=== PATIENT | female | born 1990 | race Caucasian/White ===

== ENCOUNTER 2019-12-06 21:07 | Emergency (ER) | payer BC, SELFPAY ==
[2019-12-06 21:09] VITALS: BP 119/103; PULSE 106; RESP 16; O2SAT 97; BMI 25.7
--- NOTE | 2019-12-06 21:09 | PC.NURSE ---
2101: 2 boluses of NS hung at this time infusing in both IVs pt covered in warm blanket 50 mcg of fentanyl at this time
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
--- NOTE | 2019-12-06 21:10 | PC.NURSE ---
50 mcg of fentanyl given
--- NOTE | 2019-12-06 21:11 | PC.NURSE ---
2057 IV access gained by Mickey, RN 18G to RT AC and 20g to LT AC
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
[2019-12-06 21:35] LABS: Basophils # 0.1 K/mm3 (0-0.2); Basophils % 0.6 % (0.1-2.0); Eosinophils # 0.5 K/mm3 (0.0-0.4); Eosinophils % 2.5 % (0.1-12.0); Hemoglobin 16.5 g/dL (12.2-16.2); Lymphocytes # 7.9 K/mm3 (0.7-4.5); Lymphocytes % 43.8 % (10-50); Mean Corpuscular HGB Conc 33.6 g/dL (31.8-35.4); Mean Corpuscular Hemoglobin 29.1 pg (27.0-31.2); Mean Corpuscular Volume 86.7 fl (81-99); Mean Platelet Volume 7.7 fl (7.4-10.4); Monocytes # 0.7 K/mm3 (0.1-1.0); Monocytes % 3.7 % (1.7-9.3); Neutrophils # 8.9 K/mm3 (1.8-7.8); Neutrophils % 49.4 % (37.0-80.0); Platelet Count 447 K/mm3 (142-424); Red Blood Count 5.65 M/mm3 (4.20-5.40); Red Cell Distribution Width 13.6 % (11.5-17.5)
[2019-12-06 21:36] LABS: MANUAL DIFFERENTIAL MANUAL DIFFERENTIAL (MANUAL DIFF)
[2019-12-06 21:39] LABS: Chloride 111 mmol/L (98-107); Sodium 143 mmol/L (136-145)
--- NOTE | 2019-12-06 21:39 | [facility].EDTRAUMA ---
ED Disposition Clinical Impression: Lumbar back pain, Abrasions of multiple sites Concussion Qualifiers: Encounter type: initial encounter Loss of consciousness presence/duration: without LOC Qualified Code(s): S06.0X0A - Concussion without loss of consciousness, initial encounter Acute cervical sprain Qualifiers: Encounter type: initial encounter Qualified Code(s): S13.9XXA - Sprain of joints and ligaments of unspecified parts of neck, initial encounter Left wrist sprain Qualifiers: Encounter type: initial encounter Qualified Code(s): S63.502A - Unspecified sprain of left wrist, initial encounter Disposition: Home, Self-Care Condition on Discharge: Good Instructions: DI for Abrasion Additional Instructions: call pcp in am for follo wup Prescriptions: Ketorolac Tromethamine [Toradol 10mg tablet] 10 mg PO Q6H 2 Days #10 tab Prescription Printed Referrals: Provider,Referral, MD [Primary Care Provider] - - Critical Care Critical Care Time: No Attestation: On 12/06/19, the high probability of a clinically significant, sudden or life threatening deterioration of the following system(s) required my full and direct attention, intervention and personal management. The time I documented below is in addition to time spent performing reported procedures but includes the following listed in this critical care notation. Medical Decision Making - Medical Records Medical records reviewed: Yes: I reviewed the patient's medical records. - Jagjit Inquiry Pt receiving controlled substance: No Vital Signs: 12/06/19 21:09 Pulse Rate [Left Radial] 106 H Respiratory Rate 16 Blood Pressure [Right Arm] 119/103 H Blood Pressure Mean [Right Arm] 108 Blood Pressure Source [Right Arm] Manual Cuff/ Auscultation Blood Pressure Position [Right Arm] Supine 02 Sat by Pulse Oximetry 97 Oxygen Delivery Method Room Air - Lab Data Lab results reviewed: Yes: I reviewed the patient's lab results. Lab Results 12/06/19 21:00: WBC 18.0 H, RBC 5.65 H, Hgb 16.5 H, Hct 49.0 H, MCV 86.7, MCH 29.1, MCHC 33.6, RDW 13.6, Plt Count 447 H, MPV 7.7, Neut % (Auto) 49.4, Lymph % (Auto) 43.8, Dane % (Auto) 3.7, Eos % (Auto) 2.5, Baso % (Auto) 0.6, Neut # (Auto) 8.9 H, Lymph # (Auto) 7.9 H, Dane # (Auto) 0.7, Eos # (Auto) 0.5 H, Baso # (Auto) 0.1, Total Counted 100, Neutrophils % (Manual) 46, Lymphocytes % (Manual) 52 H, Monocytes % (Manual) 1 L, Basophils % (Manual) 1.0, Platelet Estimate Normal, RBC Morphology Normal 12/06/19 21:00: Sodium 143, Potassium 3.2 L, Chloride 111 H, Carbon Dioxide 20 L, Anion Gap 15.2 H, BUN 6 L, Creatinine 0.80, Estimated Creat Clear 113, Estimated GFR 86, Est GFR ( Amer) 104, Glucose 137 H, Calcium 9.0, Total Bilirubin 0.7, AST 30, ALT 25, Alkaline Phosphatase 88, Total Protein 7.9, Albumin 4.9, Globulin 3.0, Albumin/Globulin Ratio 1.6 12/06/19 21:00: Plasma/Serum Alcohol 271 H Result diagrams: 12/06/19 21:00 12/06/19 21:00 Orders (Tests/Meds): ED MEDICATIONS Discontinued Medications Generic Name Dose Route Start Last Admin Trade Name Freq PRN Reason Stop Dose Admin Ketorolac Tromethamine 30 mg 12/06/19 22:16 12/06/19 22:16 Toradol 30mg/Ml Vial IV 12/06/19 22:17 30 mg ONCE ONE Administration ORDERS Category Date Time Status CT abdomen pelvis w con Stat Cat Scan 12/06/19 21:[address] angio chest Stat Cat Scan 12/06/19 21:[address] cervical spine wo con Stat Cat Scan 12/06/19 21:[address] head/brain wo con Stat Cat Scan 12/06/19 21:[address] lumbar spine wo con Stat Cat Scan 12/06/19 21:[address] thoracic spine wo con Stat Cat Scan 12/06/19 21:14 Taken Ankle XR - Left minimum 3 Views [XR ankle LT min 3V] Exams 12/06/19 21:19 Taken Stat XR chest AP Stat Exams 12/06/19 21:16 Taken XR pelvis 1-2V Stat Exams 12/06/19 21:14 Taken XR wrist LT min 3V Stat Exams 12/06/19 21:19 Taken Drug Screen,Urine Stat Lab 12/06/19 21:40 Ordered Urinalysi
[2019-12-06 21:40] LABS: Potassium 3.2 mmoL/L (3.5-5.1)
[2019-12-06 21:42] LABS: Alanine Aminotransferase 25 U/L (12-78); Albumin Level 4.9 g/dl (3.5-5.0); Albumin/Globulin Ratio 1.6 (1.1-1.8); Alkaline Phosphatase 88 U/L (38-126); Anion Gap 15.2 mEq/L (5-15); Aspartate Amino Transferase 30 U/L (14-36); Bilirubin,Total 0.7 mg/dl (0.2-1.3); Blood Urea Nitrogen 6 mg/dl (7-17); Carbon Dioxide 20 mmol/L (22.0-30.0); Creatinine Clearance Estimated 113 mL/min (50-200); Estimated Glomerular Filt Rate 86 ml/min (>60); GFR (African American) 104 ML/MIN (>60); Total Protein,Serum 7.9 g/dl (6.3-8.2)
[2019-12-06 21:43] LABS: Glucose 137 mg/dl (74-100)
[2019-12-06 21:55] LABS: Ethyl Alcohol 271 mg/dl (0-10)
--- NOTE | 2019-12-06 21:56 | PC.NURSE ---
report given to caryl dee rn and ainsley cotter,emt-p
--- NOTE | 2019-12-06 22:01 | PC.NURSE ---
pt left via [facility]
[2019-12-06 22:05] LABS: Lymphocytes % 52 % (10-50); Monocytes % 1 % (2-9); Neutrophils % 46 % (42-76); Total Cells Counted 100
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
[2019-12-06 22:06] LABS: Platelet Estimate Normal; RBC Morphology Normal
--- NOTE | 2019-12-06 22:26 | PC.NURSE ---
head and chest ct's egative result received at this time
[2019-12-06 23:18] VITALS: BP 120/79; PULSE 83; RESP 16; TEMP 36.7; O2SAT 97
[2019-12-29 10:10] LABS: POC Glucose,Bedside 137 (70-110)
== END 2019-12-06 23:22 | disposition home or self-care (01) ==
PROVIDERS: Emergency Provider Emergency Medicine
DX: S06.0X0A Concussion without loss of consciousness, initial encounter (principal); S13.9XXA Sprain of joints and ligaments of unspecified parts of neck, initial encounter; S63.502A Unspecified sprain of left wrist, initial encounter; S82.302A Unspecified fracture of lower end of left tibia, initial encounter for closed fracture; V49.3XXA Car occupant (driver) (passenger) injured in unspecified nontraffic accident, initial encounter; Y92.413 State road as the place of occurrence of the external cause; F10.10 Alcohol abuse, uncomplicated
CPT/HCPCS: 70450; 71045; 71275; 72125; 72128; 72131; 72170; 73110; 73610; 74177; 80053; 82962; 85007; 85025; 96365; 96366; 96375; 96376; 99281; Q9967